=== PATIENT | female | born 1995 | race Caucasian/White ===

== ENCOUNTER 2024-11-06 09:00 | Emergency (ER) | payer MEDICAID ==
[~2024-11-06] VITALS: Ht 154.9 cm; Wt 61.4 kg
[2024-11-06 09:02] VITALS: TEMP 97.7
[2024-11-06] MEDS ORDERED: NAPR-1197 PO (09:07)
[2024-11-06 10:14] VITALS: BP 129/84; PULSE 84; RESP 17; O2SAT 100
== END 2024-11-06 10:17 | disposition left against medical advice (07) ==
LOC: EMS 09:05
DX: N75.1 Abscess of Bartholin's gland (principal); Z91.040 Latex allergy status
CPT/HCPCS: 99281; Z7502